=== PATIENT | female | born 1970 | race Asian ===

== ENCOUNTER → 2021-03-09 | Outpatient (CLI) | payer BC | LOC: MC.RAD 16:33 | DX: Z12.31 Encounter for screening mammogram for malignant neoplasm of breast (principal) ==

== ENCOUNTER → 2023-06-22 | Outpatient (CLI) | payer OTHER | LOC: MC.RAD 09:07 | DX: Z12.31 Encounter for screening mammogram for malignant neoplasm of breast (principal) ==